=== PATIENT | female | born 1995 | race Two or more races ===

== ENCOUNTER 2019-06-26 12:27 | Emergency (ER) | payer MEDICAID ==
[~2019-06-26] VITALS: Ht 162.6 cm; Wt 77.1 kg
[2019-06-26 12:41] VITALS: BP 130/88
[2019-06-26] MEDS ORDERED: CLARITIN-D 241 EACH PO (12:49)
[2019-06-26] MEDS ORDERED: AUGMENTIN 875-1 EAC1 ORAL (12:49)
--- NOTE | 2019-06-26 12:55 | Emergency Room Report ---
History of Present Illness General Chief Complaint: Flu Like Symptoms Source: Patient Present Illness HPI Patient is a 23-year-old female denies any significant past medical history who presents to the ER complaining of left ear pain for the past week. She also complains of itchy swollen eyes and nasal congestion. For the past 2 days. She denies any fever or chills. She denies any chest pain or shortness of breath. She denies any cough. She denies any rash or neck stiffness. Patient states that her son was sick last week. She denies any recent travel. Allergies: Coded Allergies: No Known Allergies (Unverified , 06/26/19) Patient History Past Medical History: none Past Surgical History: none Social History: Denies: smoking, alcohol use, drug use Last Menstrual Period: 06/09/19 Nursing Documentation-[facility] Past Medical History: No Stated History Review of Systems All Other Systems: negative except mentioned in HPI Physical Exam Vital Signs Date Time Temp Pulse Resp B/P (MAP) Pulse Ox O2 Delivery O2 Flow Rate FiO2 06/26/19 12:31 98.2 100 19 130/88 (102) 96 Room Air Sp02 EP Interpretation: reviewed, normal General Appearance: no apparent distress, alert, GCS 15, non-toxic Head: normocephalic, atraumatic Eyes: bilateral eye normal inspection, bilateral eye PERRL ENT: hearing grossly normal, normal pharynx, no angioedema, normal voice, nasal congestion, other - Left TM erythematous, periorbital swelling bilaterally , rhinorrhea with clear discharge Neck: full range of motion, supple/symm/no masses Respiratory: chest non-tender, lungs clear, normal breath sounds, speaking full sentences Cardiovascular #1: regular rate, rhythm, no edema Cardiovascular #2: 2+ carotid (R), 2+ carotid (L), 2+ radial (R), 2+ radial (L) , 2+ dorsalis pedis (R), 2+ dorsalis pedis (L) Gastrointestinal: normal bowel sounds, non tender, soft, non-distended, no guarding, no rebound Rectal: deferred Genitourinary: normal inspection, no CVA tenderness Musculoskeletal: back normal, normal range of motion, calf tenderness, gait/ station normal, non-tender Neurologic: alert, motor strength/tone normal, oriented x3, sensory intact, responsive, speech normal Psychiatric: judgement/insight normal, memory normal, mood/affect normal, no suicidal/homicidal ideation Skin: no rash Lymphatic: no adenopathy Medical Decision Making Diagnostic Impression: Primary Impression: Seasonal allergic rhinitis Additional Impression: Otitis media ER Course Patient treated with Augmentin for her otitis media and Claritin for her allergic rhinitis. After discussing risks and benefits of further diagnostics, treatment plans, as well as indications for and risks of admission, the patient is agreeable to being discharged home. I have explained that their evaluation and treatment in the emergency department today is an important step towards them achieving better health but that their evaluation today is not intended to replace further evaluation and treatment by a physician in their local clinic. I have explained that while the current findings suggest no immediate life threatening emergency they will require further evaluation and treatment by a physician of their choice in their area. They understand that it will be necessary for them to review the final reports of their ED visit with their clinic physician. We have reviewed indications for return to the Emergency Department. I have explained that additional time may need to pass and/or additional testing as an outpatient may be necessary before a definitive diagnosis can be made. They tell me they are willing to follow up as instructed within the timeframe I recommend. They appear to understand what we discussed. Additionally they understand that if they are unable to be seen by an outpatient physician they are welcome, and in fact should, return to the Emergency Department for a repeat evaluation. The patient is stable at time of discharge. Last Vital Signs Date Time Temp Pulse Resp B/P (MAP) Pulse Ox O2 Delivery O2 Flow Rate FiO2 06/26/19 12:41 98.2 100 19 130/88 96 Room Air Disposition: HOME, SELF-CARE Condition: Stable Scripts Loratadine/Pseudoephedrine (CLARITIN-D 24 HOUR TABLET) 1 Each Tab.er.24h 1 TAB PO DAILY for 30 Days, TAB Prov: Lexie Neville M.D. 06/26/19 Amoxicillin/Potassium Clav 875-125* (AUGMENTIN 875-125 TABLET*) 1 Each Tablet 1 TAB ORAL TWICE A DAY for 10 Days, #20 TAB Prov: Lexie Neville M.D. 06/26/19 Patient Instructions: Otitis Media, Adult, [id number], Allergic Rhinitis Lexie Neville M.D. Jun 26, 2019 12:54
[2019-06-26 13:00] VITALS: BP 126/89
[2019-06-26] MEDS ORDERED: Augmentin 875mg Tab ORAL ONE (13:00)
== END 2019-06-26 13:00 | disposition home or self-care (01) ==
LOC: EMR 13:00
DX: J30.9 Allergic rhinitis, unspecified (principal); H66.92 Otitis media, unspecified, left ear
CPT/HCPCS: 99282